=== PATIENT | male | born 1980 | race Two or more races ===

== ENCOUNTER 2025-03-22 20:00 | Emergency (ER) | payer OTHER ==
[~2025-03-22] VITALS: Ht 175.3 cm; Wt 75.7 kg
[2025-03-22] MEDS ORDERED: METOCLOPRAMIDE HCL 5 MG/ML VIAL IM STA (21:26)
[2025-03-22] MEDS ORDERED: PROMETHAZINE HCL 50 MG/ML AMPUL IM STA (21:28)
[2025-03-22] MEDS ORDERED: 0.9 % SODIUM CHLORIDE 500 ML IV STA (21:29)
[2025-03-22] MEDS ORDERED: KETOROLAC TROMETHAMINE 30 MG VIAL IV STA (21:30)
[2025-03-22] MEDS ORDERED: HYOSCYAMINE SULFATE 0.125 MG TAB.SUBL SL ONE (21:30)
[2025-03-22] MEDS ORDERED: FAMOtidine 10 MG/ML (4ML VIAL) IV PUSH STA (21:31)
== END 2025-03-23 00:38 | disposition home or self-care (01) ==
LOC: ER 20:00
DX: K29.70 Gastritis, unspecified, without bleeding (principal); K21.9 Gastro-esophageal reflux disease without esophagitis; R11.10 Vomiting, unspecified

== ENCOUNTER 2025-03-24 11:13 | Emergency (ER) | payer OTHER ==
[~2025-03-24] VITALS: Ht 175.3 cm; Wt 75.7 kg
[2025-03-24] MEDS ORDERED: 0.9 % SODIUM CHLORIDE 1,000 ML IV STA (12:09)
[2025-03-24] MEDS ORDERED: FAMOTIDINE/PF 20 MG in 0.9 % SODIUM CHLORIDE 8 ML IV PUSH STA (12:10)
[2025-03-24] MEDS ORDERED: SUCRALFATE 1 G TABLET PO ONE (12:15)
[2025-03-24] MEDS ORDERED: ONDANSETRON HCL 2 MG/ML VIAL IV ONE (12:45)
[2025-03-24 13:04] LABS: BASO % 0.3 % (0.1-1.2); EOS # 0.00 (0.04-0.54); EOS % 0.0 % (0.7-7.0); LYMPH # 1.71 (1.18-3.74); LYMPH % 22.2 % (19.3-53.1); MEAN PLATELET VOLUME 11.10 fl (9.4-12.4); MONO # 0.82 (0.24-0.82); MONO % 10.6 % (4.7-12.5); NEUT # 5.15 (1.56-6.13); NEUT % 66.6 % (34.0-71.1); RED CELL DISTRIBUTION WIDTH 12.0 % (11.6-14.4)
[2025-03-24 13:58] LABS: ALT/SGPT 62 U/L (12-78); AST/SGOT 40 U/L (15-37); BILIRUBIN TOTAL 1.16 mg/dL (0.3-1.2); BUN CREA RATIO 20 (7.0-25.0); CREATININE SERUM 0.64 mg/dL (0.70-1.30); GFR 135.86; GLOBULINA 3.8 G/DL (2.4-3.5); GLUCOSE FASTING 117 mg/dL (65-100); OSMOLALITY SERUM 284 MOSM/KG (275-295)
[2025-03-24 13:59] LABS: TSH < 0.005 uIU/mL (0.358-3.74)
== END 2025-03-24 19:11 | disposition home or self-care (01) ==
LOC: ER 11:34
PROVIDERS: Emergency Medicine
DX: R10.9 Unspecified abdominal pain (principal)